=== PATIENT | female | born 1990 | race Two or more races ===

== ENCOUNTER 2020-02-18 07:59 | Outpatient (CLI) | payer OTHER | END 2020-02-18 08:04 | disposition home or self-care (01) | LOC: SONOGRAMA 07:59 | PROVIDERS: ATTEND Pathology Anatomic Pathology & Clinical Pathology | DX: E04.2 Nontoxic multinodular goiter (principal) ==

== ENCOUNTER 2020-03-08 13:24 | Outpatient (CLI) | payer OTHER | END 2020-03-08 13:40 | disposition home or self-care (01) | LOC: SONOGRAMA 13:24 | DX: E04.2 Nontoxic multinodular goiter (principal); C73 Malignant neoplasm of thyroid gland ==

== ENCOUNTER 2020-03-10 12:45 | Outpatient (CLI) | payer OTHER | END 2020-03-10 13:20 | disposition home or self-care (01) | LOC: OFIC 805 12:45 | PROVIDERS: ATTEND Otolaryngology | DX: C73 Malignant neoplasm of thyroid gland (principal) ==

== ENCOUNTER 2020-04-18 06:14 | Inpatient (IN) | payer OTHER ==
[~2020-04-18] VITALS: Ht 162.6 cm; Wt 74.8 kg
== END 2020-04-19 14:17 | disposition home or self-care (01) | DRG 627 ==
LOC: CIR.AMB 06:14 → SURH 11:47 → O/R 11:47 → SURH 12:26
PROVIDERS: ADMIT Surgery; ATTEND Surgery
PROC: 0GTH0ZZ Resection of Right Thyroid Gland Lobe, Open Approach (ICD-10-PCS; 2020-04-18)
PROC: 0GBL0ZZ Excision of Right Superior Parathyroid Gland, Open Approach (ICD-10-PCS; 2020-04-18)
PROC: 0GBM0ZZ Excision of Left Superior Parathyroid Gland, Open Approach (ICD-10-PCS; 2020-04-18)
PROC: 0GTG0ZZ Resection of Left Thyroid Gland Lobe, Open Approach (ICD-10-PCS; principal; 2020-04-18 07:00)
DX: C73 Malignant neoplasm of thyroid gland (principal); E21.0 Primary hyperparathyroidism

== ENCOUNTER → 2020-09-27 | Outpatient (CLI) | payer OTHER | END | disposition home or self-care (01) | LOC: MAMO-SONO 10:59 | PROVIDERS: ATTEND Internal Medicine | DX: Z12.31 Encounter for screening mammogram for malignant neoplasm of breast (principal); Z80.3 Family history of malignant neoplasm of breast; N60.11 Diffuse cystic mastopathy of right breast ==

== ENCOUNTER 2021-05-12 13:36 | Outpatient (CLI) | payer OTHER | END 2021-05-12 13:38 | disposition home or self-care (01) | LOC: SONOGRAMA 13:36 | PROVIDERS: ATTEND Internal Medicine | DX: E04.2 Nontoxic multinodular goiter (principal); C73 Malignant neoplasm of thyroid gland ==

== ENCOUNTER 2024-01-31 10:24 | Outpatient (CLI) | payer OTHER | END 2024-01-31 10:35 | disposition home or self-care (01) | LOC: SONOGRAMA 10:24 | PROVIDERS: ATTEND Internal Medicine | DX: C73 Malignant neoplasm of thyroid gland (principal); R22.1 Localized swelling, mass and lump, neck ==